=== PATIENT | female | born 1980 | race African-American/Black ===

== ENCOUNTER 2017-10-23 09:05 | Emergency (ER) | payer OTHER ==
[2017-10-23 09:18] VITALS: PULSE 64; TEMP 98.4; BMI 35.6
--- NOTE | 2017-10-23 10:17 | PDOC ---
History of Present Illness - General History Source: Patient Exam Limitations: No Limitations - History of Present Illness Initial Comments: 10/23/17 10:39 Patient is a 37 year old female with past medical history of gallbladder disease , presents with diffuse abdominal pain, beginning this morning, described as a sharp pain, made worse after eating, with associated nausea, vomiting, diarrhea , subjective fever, chills. She denies recent dysuria, frequency, urgency or hematuria. She denies recent chest pain or shortness of breath. Allergies: NKA Past surgical history: None reported. Social history: Patient reports drinking approx. 2 beers daily. Primary Care Physician: Dr. Fenton <Ludwig Knox - Last Filed: 10/23/17 13:46> <Kleber Jacobson - Last Filed: 10/23/17 14:24> - General Chief Complaint: Pain Stated Complaint: ABD PAIN Time Seen by Provider: 10/23/17 09:59 Past History <Ludwig Knox - Last Filed: 10/23/17 13:46> - Past Medical History Asthma: Yes COPD: No GI Disorders: Yes (GB) Psychiatric Problems: Yes (anxiety, borderline) - Suicide/Smoking/Psychosocial Hx Smoking History: Current every day smoker Have you smoked in the past 12 months: Yes Number of Cigarettes Smoked Daily: 10 Information on smoking cessation initiated: No 'Breaking Loose' booklet given: 07/03/16 Hx Alcohol Use: Yes (2 BEER DAILY) Drug/Substance Use Hx: No Substance Use Type: None <Kleber Jacobson - Last Filed: 10/23/17 14:24> - Past Medical History Allergies/Adverse Reactions: Allergies Allergy/AdvReac Type Severity Reaction Status Date / Time lansoprazole [From Prevacid] Allergy Verified 10/23/17 09:18 Home Medications: Ambulatory Orders Tramadol HCl 50 mg PO TID #14 tablet MDD 3 10/23/17 Review of Systems - Review of Systems Comments:: 10/23/17 10:39 CONSTITUTIONAL: +Subjective fever, +Chills. No fatigue EYES: No visual changes ENT: No ear pain, no sore throat CARDIOVASCULAR: No chest pain, no palpitations RESPIRATORY: No cough, no SOB GI: +Diffuse abdomial pain. +Nausea. +Vomiting. +Diarrhea. No constipation. GENITOURINARY: No dysuria, no frequency, no hematuria MUSKULOSKELETAL: No backpain, no joint pain, no myalgias SKIN: No rash NEURO: No headache <Ludwig Knox - Last Filed: 10/23/17 13:46> *Physical Exam - Vital Signs Last Vital Signs Temp Pulse Resp BP Pulse Ox 98.4 F 64 20 147/111 98 10/23/17 09:14 10/23/17 09:14 10/23/17 09:14 10/23/17 09:14 10/23/17 09:14 - Physical Exam Comments: 10/23/17 10:40 CONSTITUTIONAL: +Obese. In no apparent distress HEAD: Normocephalic; atraumatic EYES: PERRL; EOM intact ENMT: External appears normal; normal oropharynx NECK: Supple; non-tender; no cervical lymphadenopathy CARD: Normal S1, S2; no murmurs, rubs, or gallops RESP: Normal chest excursion with respiration; breath sounds clear and equal bilaterally; no wheezes, rhonchi, or rales ABD: +RUQ tenderness. Soft, non-distended; no palpable organomegaly, no palpable hernias EXT: Normal ROM in all four extremities; non-tender to palpation; distal pulses intact SKIN: Warm, dry, no rash NEURO: No focal neurological deficiencies. <Ludwig Knox - Last Filed: 10/23/17 13:46> - Vital Signs Last Vital Signs Temp Pulse Resp BP Pulse Ox 98.4 F 64 20 147/111 98 10/23/17 09:14 10/23/17 09:14 10/23/17 09:14 10/23/17 09:14 10/23/17 09:14 <Kleber Jacobson - Last Filed: 10/23/17 14:24> ED Treatment Course - LABORATORY CBC & Chemistry Diagram: 10/23/17 11:10 10/23/17 11:10 - RADIOLOGY Radiograph Interpretation: 10/23/17 13:07 EXAM#: TYPE/EXAM: RESULT: [id number] US/ABDOMEN US -LIMITED EXAM: Right upper quadrant abdominal sonogram. INDICATION: Abdominal pain. TECHNIQUE: Real-time grayscale and color Doppler sonogram of the right upper quadrant of the abdomen was performed by the technologist. Images are submitted for review. COMPARISON: None available. FINDINGS: The liver is normal in size measuring 15.7 cm in length. Hepatic parenchyma is diffusely echogenic , indicating steatosis. Please note that echogenic hepatic parenchyma decreases sonographic sensitivity in detecting hepatic mass lesions. There are numerous shadowing gallstones within the gallbladder, predominantly in the fundus. The gallbladder is not hydropic. The gallbladder wall is borderline measuring 3 mm in thickness. No evidence of pericholecystic fluid. Technologist reports a positive sonographic Luu sign. No evidence of intrahepatic or extrahepatic biliary ductal dilatation. The proximal common bile duct measures 4 mm in diameter. Distal common bile duct is obscured by bowel gas and cannot be assessed. The visualized portions the pancreatic head and body are unremarkable. The pancreatic tail is obscured by bowel gas and cannot be assessed. The right kidney is normal in size, measuring 11.4 cm in length with normal cortical echotexture and no hydronephrosis. No free fluid identified in the right upper quadrant of the abdomen. The portal vein is patent, where imaged, with hepatopedal flow. The upper abdominal aorta and intrahepatic IVC are grossly unremarkable, where imaged. IMPRESSION: Nondistended gallbladder with cholelithiasis and borderline gallbladder wall thickness, some of which may be attributed to underdistention. No pericholecystic fluid. Technologist however reports a positive sonographic Luu's sign. The sonographic findings are equivocal for cholecystitis, requiring clinical correlation. Reported By: Tasha Campos DO <Ludwig Knox - Last Filed: 10/23/17 13:46> - LABORATORY CBC & Chemistry Diagram: 10/23/17 11:10 10/23/17 11:10 <Kleber Jacobson - Last Filed: 10/23/17 14:24> Medical Decision Making - Medical Decision Making 10/23/17 13:05 Page sent to [facility] at 1:04 pm. Pending call back. Second page sent to [facility] at 1:[address] Cespedes returned the page at 1:42 pm. <Ludwig Knox - Last Filed: 10/23/17 13:46> - Medical Decision Making 10/23/17 14:16 Patient is a 37-year-old female with history of biliary colic who presents to the ER with sharp, right upper quadrant pain, radiating to the back, associated with several episodes of nonbloody nonbilious vomiting and intermittent nausea after consuming a grilled cheese sandwich the night previously. Patient denies fever/chills. In the ER, patient is awake and alert, hypertensive initial evaluation with mild to moderate right upper quadrant tenderness to palpation. CBC reveals no evidence of leukocytosis, polycythemia is noted. CMP reveals normal LFTs and a normal lipase. Right upper quadrant ultrasound shows fatty liver, multiple small biliary stones and normal CBD. I suspect biliary colic. Case discussed with Dr. Levine of surgery. She agrees with plan of outpatient discharge and follow-up for outpatient cholecystectomy. 10/23/17 14:23 Patient remains hypotensive. We'll administer amlodipine-10 mg by mouth. <Kleber Jacobson - Last Filed: 10/23/17 14:24> *DC/Admit/Observation/Transfer - Attestations Scribe Attestion: 10/23/17 10:41 Documentation prepared by Ludwig Knox, acting as biomedical analytical scientist for Kleber Jacobson MD. <Ludwig Knox - Last Filed: 10/23/17 13:46> - Attestations Physician Attestion: 10/23/17 14:16 The documentation was prepared by the scribe under my direct supervision. I have reviewed the documentation which correctly represents the findings, medical decision-making and critical action taken by me. <Kleber Jacobson - Last Filed: 10/23/17 14:24> Diagnosis at time of Disposition: Biliary colic Hypertension Qualifiers: Hypertension type: unspecified Qualified Code(s): I10 - Essential (primary) hypertension - Discharge Dispostion Disposition: HOME Condition at time of disposition: Stable - Prescriptions Prescriptions: Tramadol HCl 50 mg PO TID #14 tablet MDD 3 - Referrals Referrals: Clarence Cespedes MD [Staff Physician] - - Patient Instructions Printed Discharge Instructions: DI for Biliary Colic, High Blood Pressure
[2017-10-23] MEDS ORDERED: KETOROLAC TROMETHAMINE 15 MG/ML VIAL IVPUSH ONE (10:32)
[2017-10-23] MEDS ORDERED: SODIUM CHLORIDE 1,000 ML IV STA (10:32)
[2017-10-23] MEDS ORDERED: ONDANSETRON 4 MG/2 ML VIAL IVPB ONE (10:32)
[2017-10-23] MEDS ORDERED: ONDANSETRON 4 MG/2 ML VIAL ONE (11:17)
[2017-10-23] MEDS ORDERED: KETOROLAC TROMETHAMINE 15 MG/ML VIAL ONE (11:17)
[2017-10-23 11:47] LABS: BASO % 0.7 % (0-2.0); EOS % 0.4 % (0-4.5); HEMATOCRIT 55.1 % (32.4-45.2); HEMOGLOBIN 17.9 GM/dL (10.7-15.3); LYMPH % 27.5 % (8-40); MCH 29.8 pg (25.7-33.7); MCHC 32.4 g/dl (32.0-36.0); MEAN CELL VOLUME 91.8 fl (80-96); MONO % 5.2 % (3.8-10.2); NEUT % 66.2 % (42.8-82.8); PLATELET COUNT 214 K/MM3 (134-434); RDW 17.2 % (11.6-15.6); WHITE BLOOD COUNT 7.6 K/mm3 (4.0-10.0)
[2017-10-23 11:50] LABS: HCG,QUALITATIVE URINE NEGATIVE
[2017-10-23 11:51] LABS: URINE APPEARANCE TURBID; URINE BILIRUBIN NEGATIVE (NEGATIVE); URINE BLOOD 1+ (NEGATIVE); URINE COLOR AMBER; URINE GLUCOSE (UA) NEGATIVE (NEGATIVE); URINE KETONE TRACE (NEGATIVE); URINE NITRITE NEGATIVE (NEGATIVE); URINE UROBILINOGEN 4.0 E.U/dl mg/dL (0.2-1.0)
[2017-10-23 12:00] LABS: INR 0.96 (0.82-1.09); PROTHROMBIN TIME (PATIENT) 10.8 SEC (9.98-11.88)
[2017-10-23 12:09] LABS: URINE LEUK ESTERASE 3+ (NEGATIVE); URINE PROTEIN 1+ (NEGATIVE)
[2017-10-23 12:10] LABS: EPI CELLS MANY /HPF (FEW); URINE BACTERIA RARE /hpf (NONE SEEN); URINE MUCUS MANY; YEAST RARE
[2017-10-23 12:27] LABS: ALBUMIN 3.7 g/dl (3.4-5.0); ANION GAP 11 (8-16); BILIRUBIN,TOTAL 0.7 mg/dL (0.2-1.0); BLOOD UREA NITROGEN 4 mg/dL (7-18); CALCIUM 9.2 mg/dL (8.5-10.1); CHLORIDE 104 mmol/L (98-107); CO2 24 mmol/L (21-32); CREATININE 0.7 mg/dL (0.55-1.02); GLUCOSE,RANDOM 85 mg/dL (74-106); LIPASE 100 U/L (73-393); POTASSIUM 3.7 mmol/L (3.5-5.1); SGOT/AST 20 U/L (15-37); SGPT/ALT 29 U/L (12-78); SODIUM 139 mmol/L (136-145); TOT PROT 7.4 g/dl (6.4-8.2)
[2017-10-23 12:28] LABS: ALK PHOS 89 U/L (45-117)
[2017-10-23 14:11] LABS: URINE APPEARANCE CLOUDY; URINE BILIRUBIN NEGATIVE (NEGATIVE); URINE BLOOD NEGATIVE (NEGATIVE); URINE COLOR AMBER; URINE GLUCOSE (UA) NEGATIVE (NEGATIVE); URINE KETONE TRACE (NEGATIVE); URINE NITRITE NEGATIVE (NEGATIVE); URINE UROBILINOGEN 4.0 E.U/dl mg/dL (0.2-1.0)
[2017-10-23 14:20] LABS: URINE LEUK ESTERASE 2+ (NEGATIVE); URINE PROTEIN 1+ (NEGATIVE)
[2017-10-23 14:22] LABS: EPI CELLS MODERATE /HPF (FEW); URINE BACTERIA RARE /hpf (NONE SEEN); URINE MUCUS MANY
[2017-10-23] MEDS ORDERED: amLODIPine BESYLATE 5 MG TABLET (FP) ONE (14:31)
[2017-10-23] MEDS ORDERED: amLODIPine BESYLATE 10 MG TABLET (FP) PO ONE (14:32)
[2017-10-23 14:46] VITALS: BP 157/107
== END 2017-10-23 14:30 | disposition home or self-care (01) ==
LOC: JER 09:05
PROC: 3E0333Z Introduction of Anti-inflammatory into Peripheral Vein, Percutaneous Approach (ICD-10-PCS; principal; 2017-10-23)
PROC: 3E033GC Introduction of Other Therapeutic Substance into Peripheral Vein, Percutaneous Approach (ICD-10-PCS; 2017-10-23)
DX: I10 Essential (primary) hypertension (principal); K80.50 Calculus of bile duct without cholangitis or cholecystitis without obstruction
CPT/HCPCS: 36415; 76705-TC; 80053; 81003; 81015; 83690; 84703; 85025; 85610; 87086; 96365; 96375; 99282-25